=== PATIENT | female | born 1940 | race Caucasian/White ===

== ENCOUNTER 2017-06-26 02:26 | Inpatient (IN) | payer OTHER, MEDICARE ==
[~2017-06-26] VITALS: Ht 170.2 cm; Wt 81.6 kg
[~2017-06-26 02:26] MED LIST: ALEVE220 M1 PO; XANAX0.5 M1 PO
--- NOTE | 2017-06-26 10:03 | Operative Report ---
Operative/Inv Procedure Report Surgery Date: 06/26/17 Name of Procedure: Right total hip arthroplasty Pre-Operative Diagnosis: Primary osteoarthritis right hip Post-Operative Diagnosis: Same Estimated Blood Loss: scant (200 cc) Surgeon/Plastic Process Technician: Yoandy JETER,Merrill LIN Anesthesia: general endotracheal tube IV Fluids: See anesthesia record Implants: Marleen Accolade 2 femoral stem size 527 neck angle, 56 acetabular shell +2.5 neck length 36 mm head Drains: None Specimens: Right femoral head Complications: None Condition: Stable Operative Indication: Patient 76-year-old female severe degenerative changes and osteoarthritis of the right hip. She is failed conservative treatment and was indicated for right total hip arthroplasty. The risks and benefits of the procedure were discussed with the patient in detail in the office. A skilled set hands was necessary provided by physician assistant Tommie Harris weighted with retraction and positioning and retraction and component assembly throughout the case. Operative/Procedure Note Note: Once informed consent was obtained and the correct limb was identified the patient brought to operative room placed on table supine position. Administration of general endotracheal anesthesia patient had a Vanegas catheter placed was placed in a left lateral decubitus position on the pegboard. All bony prominences were well-padded. The right lower extremity is prepped and draped in usual sterile fashion. To begin the procedure standard incision was made for the posterior approach to the hip. Sharp dissection carried down to skin and subcutaneous tissue. The fascia of the gluteus christina was incised and the fibers were bluntly dissected. 2 retractors were placed deep to the gluteus medius and around the femoral neck to identify the piriformis tendon. The piriformis tendon was identified and tagged for later repair. He was released from its insertion. The gluteus minimus muscle belly was identified and a retractor was placed deep to the gluteus medius to expose the superior hip capsule. Using a sharp #10 blade a superior capsulotomy was performed without complication. The capsule was tagged for repair. Hip was then dislocated. The patient Is Removed from the Femoral Neck and a Femoral Neck Cut was made fingerbreadth above the lesser trochanter. Femoral head was passed off as specimen. The femur was then retracted anteriorly and anterior and inferior acetabular retractors were placed to isolate the acetabulum. Lower labrum and osteophytes removed from acetabulum. Lavage removing acetabulum and a curet was used to find the medial wall of the acetabulum. We began reaming with a size 47 reamer. We reamed sequentially up to a size 55 reamer. A 656 trial acetabulum was placed in the cup and found to be an excellent press-fit. A size 56 acetabular cup was opened and press-fit into the acetabulum without complication. It was stable and there was no need for screws. The liner was opened and locked into place on the cup. Ray-Lu was placed in liner to protect it and we turned our attention to the femur. The femur was internally rotated and the femoral neck cut had lateral femoral neck still in place and a box osteotome was used to remove this. Femoral canal was opened with a reamer and then we sequentially broached side starting with a size 0 broach up to a size 5 broach. Size 5 was an excellent fit and left in place. Trial reduction was done. A 36 mm head with a standard neck length was placed. There was a little bit of shucking saline to a +2.5 neck length. The hip was stable with the 2.5 neck length at 90 of flexion with 40 of internal rotation and 40 of adduction. Leg lengths are equal. The hip was dislocated and the trial components removed. The femoral canal was pulse lavaged and a size 5 Accolade 2 press-fit femoral component with 127 neck length was opened and press-fit down the canal with care taken to avoid any intraoperative fractures. Trial reduction was again done with a +2.5 head and found to be stable. A 36 mm +2.5 femoral head was opened and locked into place on the femoral component. The hip was reduced and again taken through range of motion. At this point the wound was pulse lavaged. Drill holes placed in the greater trochanter and the capsule and piriformis were repaired back to the greater trochanter. The fascia was then closed with a running #1 looped Maxon suture. Subcutaneous tissues closed with #1 Vicryl and 2-0 Vicryl interrupted sutures. The skin was closed with som and sterile dressings applied. The patient was awakened taken recovery in stable condition.
--- NOTE | 2017-06-26 10:36 | RADIOLOGY REPORT ---
EXAMINATION: XR HIP, RIGHT CLINICAL INFORMATION: Status post right total hip replacement. COMPARISON: None TECHNIQUE: Single AP view of the right hip FINDINGS: There is a right total hip arthroplasty with the components in usual position. There is no periprosthetic fracture or suspicious area of lucency. Aric are present. Air\E\gas present in the soft tissues compatible postop change IMPRESSION: Right total hip arthroplasty without complication by x-ray.
--- NOTE | 2017-06-26 10:56 | Admission Core Measures ---
Acute Coronary Syndrome (CM) ACS Core Measures Acute Coronary Syndrome Diagnosis No Congestive Heart Failure (NEW) CHF Core Measures Congestive Heart Failure Diagnosis No Cerebrovascular Accident (NEW) CVA Core Measures CVA/TIA Diagnosis No Venous Thromboembolism VTE Core Love (View Protocol) VTE Risk Factors Surgery No Mechanical VTE Prophylaxis d/t N/A MechProphylax Ordered No VTE Pharm Prophylaxis d/t NA PharmProphylax ordered Problem List As ranked by this Provider includes Assessment & Plan 1. Primary osteoarthritis of right hip HOME MEDS Home Med List Alprazolam (Xanax) 0.5 MG TABLET 1 TAB PO DAILY STRESS (Reported) Naproxen Sodium (Aleve) 220 MG CAPSULE 1 TAB PO DAILY PRN PAIN (Reported)
--- NOTE | 2017-06-26 11:02 | Surg Short-stay <48hrs Dis Sum ---
Visit Information Visit Dates Admission Date: 06/26/17 Discharge Date: 06/28/17 Surgical Short Stay DC Summary Admission Diagnosis: Primary osteoarthritis, right hip Final Diagnosis: Same, s/p right total hip arthroplasty Procedure(s): Right total hip arthroplasty Summary/Significant Findings: Patient was admitted to the hospital for an elective total joint replacement. Procedure was tolerated well and patient was transferred to a general surgical floor. Diet was advanced and tolerated. Physical therapy performed evaluation and treatment. At time of hospital discharge, vital signs were stable, neurovascular status was intact, and pain was controlled with the use of oral pain medications. Condition at Discharge: Stable Discharge Disposition: home health services Discharge instructions provided to patient/family: Yes Post discharge follow-up plan: Follow up in [address] Pitt
--- NOTE | 2017-06-26 11:05 | Patient Discharge Instructions ---
Discharge Instructions General Discharge Information You were seen/treated for: Right hip osteoarthritis You had these procedures: Right total hip replacement Watch for these problems: Increasing pain despite the use of pain medication Increasing redness, warmth or swelling Drainage of any type from incision Inability to bear weight on operative leg Persistent nausea and vomiting Fever greater than 101.5 degrees Other wound care: Please keep wound clean and dry. No ointments or lotions of any type on or near incision at any time. No exceptions. Your dressing will be changed by your nurse on the second day after your surgery. Daily dry dressing changes are recommended each day thereafter. Do not soak your wound in a bath at any time until otherwise indicated by your surgeon. You may shower, please dry wound immediately after shower with a clean towel. Diet Continue normal diet: Yes Activity Full Activity/No Limits: No Activity Self Limited: Yes Activity Limited to: Weight bear as tolerated Additional ACTIVITY Info: Use rolling walker as needed Acute Coronary Syndrome Inclusion Criteria At DC or during hospital stay patient has or had the following: ACS DIAGNOSIS No Discharge Core Measures Meds if any: Prescribed or Continued at Discharge Meds if any: NOT Prescribed or Continued at Discharge Congestive Heart Failure Inclusion Criteria At DC or during hospital stay patient has or had the following: CHF DIAGNOSIS No Discharge Core Measures Meds if any: Prescribed or Continued at Discharge Meds if any: NOT Prescribed or Continued at Discharge Cerebrovascular accident Inclusion Criteria At DC or during hospital stay patient has or had the following: CVA/TIA Diagnosis No Discharge Core Measures Meds if any: Prescribed or Continued at Discharge Meds if any: NOT Prescribed or Continued at Discharge Venous thromboembolism Inclusion Criteria VTE Diagnosis No VTE Type NONE VTE Confirmed by (Test) NONE Discharge Core Measures - Per Current guidelines, there needs to be overlap - treatment for the first 5 days of Warfarin therapy. - If discharged on Warfarin prior to 5 days of - overlap therapy, the patient will need to be - assessed for post discharge needs including - *Post discharge parental anticoagulation - *Warfarin and/or parental anticoagulation education - *Follow up date to check INR post discharge At least 5 days overlap therapy as Inpatient No Meds if any: Prescribed or Continued at Discharge Note: Overlap Therapy is Warfarin and Anticoagulant Meds if any: NOT Prescribed or Continued at Discharge
[2017-06-26 11:10] VITALS: BP 126/68
[2017-06-26 13:40] VITALS: BP 110/60
--- NOTE | 2017-06-26 13:43 | Cons- Medical ---
Maren Hernández 06/26/17 1343: General Information and HPI Consulting Request Date of Consult: 06/26/17 Requested By: Yoandy JETER,Merrill Kasper Reason for Consult: Comanagement Source of Information: patient, family, old records Exam Limitations: no limitations History of Present Illness: Mrs. Lea is a 76 yo lady with PMHx. of right hip osteoarthritis, Kyphosis, fatty liver, and anxiety presented to for elective total hip replacement. She is s/p Rt. hip replacemet which was done today. Medical team consulted for co- management. Patient was seen and examined at bedside she denies any chest pain, SOB, palpitation, no other symptoms. She was seen by her PCP about a week ago for complelet annual physical examination/ perioperative evaluation and she was cleared for the procedure today. Her vitals signs is stable and her right hip pain is very well controlled with the current pain regimen. She mentioned that she used Xanax as needed, her anxiety is related to her medical issue, he was diagnosed with parkinsonism and that sometimes made her anxious, otherwise she feels that she is a healthy women. Allergies/Medications Allergies: Coded Allergies: Penicillins (HIVES 06/18/17) Home Med List: Alprazolam (Xanax) 0.5 MG TABLET 1 TAB PO DAILY STRESS (Reported) Naproxen Sodium (Aleve) 220 MG CAPSULE 1 TAB PO DAILY PRN PAIN (Reported) Past History Medical History Blood Transfusion Hx: No EENT: NONE Respiratory: NONE Gastrointestinal: NONE Hepatic: FATTY LIVER Renal: NONE Musculoskeletal: osteoarthritis, spinal stenosis Psychiatric: anxiety Endocrine: NONE Blood Disorders: NONE Cancer(s): NONE AIR POLLUTION ENGINEER/Reproductive: NONE Surgical History Surgical History: appendectomy, hysterectomy Psychosocial History Where Do You Live? Home Smoking Status: Former Smoker Exam & Diagnostic Data Last 24 Hrs of Vital Signs/I&O Vital Signs Date Time Temp Pulse Resp B/P B/P Pulse O2 O2 Flow FiO2 Mean Ox Delivery Rate 06/26 1340 98.6 93 20 110/60 90 06/26 1110 98.2 85 20 126/68 93 Room Air Intake & Output 06/26 1600 06/26 0800 06/26 0000 Intake Total 550 Output Total Balance 550 Intake, IV 150 Intake, Oral 400 Patient 180 lb Weight Weight Reported by Patient Measurement Method Physical Exam General Appearance: well developed/nourished, no apparent distress, alert, awake , comfortable Head: atraumatic, normal appearance Neck: normal inspection, supple Respiratory: normal breath sounds, chest non-tender, no respiratory distress Cardiovascular: regular rate/rhythm, normal peripheral pulses Gastrointestinal: normal bowel sounds, soft, non-tender Extremities: normal inspection, normal capillary refill, normal range of motion, no edema Neurologic/Psych: no motor/sensory deficits, awake, alert, oriented x 3 Last 24 Hrs of Labs/Venkatesh: No labs Assessment/Plan Assessment/Plan Mrs. Lea is a 76 yo lady with PMHx. of right hip osteoarthritis, Kyphosis, fatty liver, and anxiety presented to for elective total hip replacement. She is s/p Rt. hip replacemet which was done today. Medical team consulted for co- management. Assessment: #s/p right hip replacement Plan: * Pain management as per surgical team * repeat CBC/BEP tomorrow * DVT ppx Problem List: 1. Primary osteoarthritis of right hip 2. Status post total hip replacement, right Copies To: Steve Wisdom MD Consult Acknowledgment - Thank you for your consult request. Steve Wisdom MD 06/26/17 8986: Assessment/Plan Consult Acknowledgment - Thank you for your consult request. Attending MD Review Statement Attending Statement Attending MD Statement: examined this patient, discuss w/resident/PA/RN STAFFING, agreed w/resident/PA/RN STAFFING, amended to note Attending Assessment/Plan: The patient is a 76 yo female with h/o anxiety,fatty liver, and OA who presented for elective right hip replacement. At the time of my exam she was in her room sitting in chair and was comfortable. She denied any significant pain, chest pain, palpitations or nausea. Stated her plan was to return home for care as her home. Her has Parkinson's and home is set up well. Physical Exam: VS: T 98.6, P 93, R 20, BP 110/60, PO 93% RA HEENT: eyes- PERRLA, EOMI sweta- moist mucosa w/o lesions Neck: no bruits/JVD Chest: clear Cor: RRR nl S1, S2 w/o murm Abd: BS+, soft, NT Ext: s/p right THR, no edema Neuro: alert & oriented x 3, non-focal exam Impression/Plan: #S/P Right THR- doing well post operatively. Plan: Post op care as per orthopedics. Using Celebrex and Oxycodone for pain. Apixaban for DVT prophylaxis. #Anxiety- patient takes low dose of Xanax chronically. Plan: Agree with continuing usual home dose to avoid withdrawal.
--- NOTE | 2017-06-26 14:47 | PN- Orthopedic ---
Subjective Subjective: pt sitting in chair, minimal pain. Ambulating, worked with PT earlier. Tolerated diet. Curtis still in. Denies CP/SOB Objective Vital Signs and I&Os Vital Signs Date Time Temp Pulse Resp B/P B/P Pulse O2 O2 Flow FiO2 Mean Ox Delivery Rate 06/26 1340 98.6 93 20 110/60 90 06/26 1110 98.2 85 20 126/68 93 Room Air Intake & Output 06/26 1600 06/26 0800 06/26 0000 06/25 1600 06/25 0800 06/25 0000 Intake Total 550 Output Total Balance 550 Intake, IV 150 Intake, Oral 400 Patient 180 lb Weight Weight Reported by Patient Measurement Method Physical Exam: gen- NAD resp-clear cardio-RRR abd- soft, NT ext- right hip soft, dressing clean and dry. 2+ PT pulses bilaterally. Distal sensory and motor function intact Current Medications: Current Medications Sig/Ynug Start time Last Medication Dose Route Stop Time Status Admin Acetaminophen 0 .STK-MED ONE 06/26 710 DC PO Acetaminophen 650 MG ONCE 06/26 0000 DC PO 06/26 2359 Alprazolam 0.5 MG DAILY PRN 06/27 1000 AC PO 07/04 0959 Apixaban 2.5 MG BID 06/27 1000 AC PO Celecoxib 400 MG DAILY 06/27 1000 AC PO Celecoxib 400 MG ONCE 06/26 0000 DC PO 06/26 2359 Dexamethasone 10 MG ONCE 06/27 0000 DC IV 06/27 2359 Dexamethasone 0 .STK-MED ONE 06/26 0711 DC .ROUTE Dexamethasone 10 MG ONCE 06/26 0000 DC IV 06/26 2359 Dextrose/Lactated 1,000 ML Q13H 06/26 1115 AC 06/26 Ringer's IV 1131 Docusate Sodium 100 MG DAILY NEEDED PRN 06/26 1115 AC PO Gabapentin 0 .STK-MED ONE 06/26 0611 DC PO Gabapentin 300 MG ONCE 06/26 0000 DC PO 06/26 2359 Morphine Sulfate 2 MG Q3P PRN 06/26 1115 AC 06/26 IV 1405 Morphine Sulfate 4 MG Q3P PRN 06/26 1115 AC IV Ondansetron HCl 4 MG Q6P PRN 06/26 1115 AC IV Oxycodone HCl 0 .STK-MED ONE 06/26 0711 DC PO Oxycodone HCl 10 MG ONCE 06/26 0000 DC PO 06/26 2359 Oxycodone/ 1 TAB Q4P PRN 06/26 1115 AC Acetaminophen PO Oxycodone/ 2 TAB Q4P PRN 06/26 1115 AC Acetaminophen PO Polyethylene Glycol 17 GM DAILY NEEDED PRN 06/26 1115 AC PO Scopolamine HBr 0 .STK-MED ONE 06/26 0711 DC TOP Scopolamine HBr 1 PAT ONCE 06/26 0000 DC TOP 06/26 2359 Senna/Docusate Sodium 2 TAB AT BEDTIME NEED.. 06/26 1115 AC PO Vancomycin HCl 1,250 MG ONCE ONE 06/26 1900 AC Dextrose/Water 250 ML IV 06/26 195 Vancomycin HCl 1,250 MG ONCE 06/26 0000 DC Sodium Chloride 250 ML IV 06/26 2359 Assessment/Plan Assessment/Plan 76yo F SP R FLOR POD0. stable and ambulating PT- WBAT, posterior hip precautions pain management dvt ppx- eliquis, alps, early ambulation reg diet- will continue IVF overnight and DC in am regular home medications dressing change POD2 DC curtis in AM Core Measures Venous Thromboembolism VTE Risk Factors Surgery No Mechanical VTE Prophylaxis d/t N/A MechProphylax Ordered No VTE Pharm Prophylaxis d/t NA PharmProphylax ordered
[2017-06-26 16:56] VITALS: BP 120/60
[2017-06-26 22:15] VITALS: BP 110/62
[2017-06-27 02:00] VITALS: BP 108/56
--- NOTE | 2017-06-27 07:33 | PN- Orthopedic ---
Subjective Subjective: No overnight events reported. Pain controlled well. Anticipates ambulating today. Denies nausea or vomitting. Vanegas dc'd, dtv. Denies chest pain, shortness of breath and difficulty breahting. Objective Vital Signs and I&Os Vital Signs Date Time Temp Pulse Resp B/P B/P Pulse O2 O2 Flow FiO2 Mean Ox Delivery Rate 06/27 0200 97.9 78 20 108/56 94 Room Air 06/26 2215 98.3 90 20 110/62 93 06/26 1913 18 93 Room Air 06/26 1656 98.2 87 120/60 06/26 1340 98.6 93 20 110/60 90 06/26 1110 98.2 85 20 126/68 93 Room Air Intake & Output 06/27 0806/27 0000 06/26 1600 06/26 0806/26 0000 06/25 1600 Intake Total 480 1400 550 Output Total 700 800 Balance -220 600 550 Intake, IV 600 150 Intake, Oral 480 800 400 Output, Urine 700 800 Patient 180 lb Weight Weight Reported by Patient Measurement Method Physical Exam: General: Alert and oriented x3, no acute distress Cards: RRR, s1s2 Pulm: C TA bialterally ABD: non-tender non-distneded Extremiteis: Moves all extremities, distal sensation intact. Skin warm and well perfused. DP Pulses palpable. Bilateral calves soft and nontender Surgical site: R HIp, dressing dry and intact. No resting internal or external rotation of right leg. Thigh compartment soft. Assessment/Plan Assessment/Plan 76 year old Female, POD 1, s/p R THR -Continue current pain regmein DC iv fluids Eliquis 2.5 bid for dvt ppx OOB, wbat, posterior hip precautions in place Continue diet as tolerated Anticipate dc to home in 2-3 days Will discuss plan of care with DR. Pitt Core Measures Venous Thromboembolism VTE Risk Factors Surgery No Mechanical VTE Prophylaxis d/t N/A MechProphylax Ordered No VTE Pharm Prophylaxis d/t NA PharmProphylax ordered
[2017-06-27 07:40] VITALS: BP 106/52
[2017-06-27 08:08] LABS: ABSOLUTE EOSINOPHIL COUNT 0 /CUMM (0.0-0.7)
--- NOTE | 2017-06-27 08:35 | PN- Medicine Consult ---
[facility] Assessment/PlanMedical Consult Assessment/Plan Assessment: Mrs. Lea is a 76 yo lady with PMHx. of right hip osteoarthritis, Kyphosis, fatty liver, and anxiety presented to for elective total hip replacement. She is s/p Rt. hip replacemet which was done yesterday. Medical team consulted for co-management. Plan: Mrs. Lea is a 76 yo lady with PMHx. of right hip osteoarthritis, Kyphosis, fatty liver, and anxiety presented to for elective total hip replacement. She is s/p Rt. hip replacemet which was done today. Medical team consulted for co- management. Assessment: #s/p right hip replacement Plan: * Pain management as per surgical team * repeat CBC/BEP tomorrow * DVT ppx with Eliquis 2.5 BID Problem List: 1. Status post total hip replacement, right Subjective Subjective: Seen and examined, comfortable No events overnight Vitals stable Review of Systems Constitutional: Reports: no symptoms. EENTM: Reports: no symptoms. Cardiovascular: Reports: no symptoms. Respiratory: Reports: no symptoms. Gastrointestinal: Reports: no symptoms. Genitourinary: Reports: no symptoms. Musculoskeletal: Reports: no symptoms. Skin: Reports: no symptoms. Neurological/Psychological: Reports: no symptoms. Objective Last 24 Hrs of Vital Signs/I&O Vital Signs Date Time Temp Pulse Resp B/P B/P Pulse O2 O2 Flow FiO2 Mean Ox Delivery Rate 06/27 0740 97.5 61 20 106/52 94 Room Air 06/27 0200 97.9 78 20 108/56 94 Room Air 06/26 2215 98.3 90 20 110/62 93 06/26 1913 18 93 Room Air 06/26 1656 98.2 87 120/60 06/26 1340 98.6 93 20 110/60 90 06/26 1110 98.2 85 20 126/68 93 Room Air Intake & Output 06/27 1600 06/27 0800 04 0000 Intake Total 480 1400 Output Total 700 800 Balance -220 600 Intake, IV 600 Intake, Oral 480 800 Output, Urine 700 800 Physical Exam General Appearance: well developed/nourished, no apparent distress, alert, awake , comfortable Head: atraumatic, normal appearance Cardiovascular: regular rate/rhythm, normal peripheral pulses Respiratory: normal breath sounds, chest non-tender, no respiratory distress Abdomen: normal bowel sounds, soft, non-tender Current Medications: Current Medications Sig/Yung Start time Last Medication Dose Route Stop Time Status Admin Acetaminophen 650 MG ONCE 06/26 0000 DC PO 06/26 2359 Alprazolam 0.5 MG DAILY PRN 06/27 1000 AC PO 07/04 0959 Apixaban 2.5 MG BID 06/27 1000 AC 06/27 PO 0842 Celecoxib 400 MG DAILY 06/27 1000 AC 06/27 PO 0842 Celecoxib 400 MG ONCE 06/26 0000 DC PO 06/26 235 Dexamethasone 10 MG ONCE 06/27 0000 DC IV 06/27 235 Dexamethasone 10 MG ONCE 06/26 0000 DC IV 06/26 2359 Dextrose/Lactated 1,000 ML Q13H 06/26 1115 DC 06/27 Ringer's IV 0327 Docusate Sodium 100 MG DAILY NEEDED PRN 06/26 1115 AC PO Gabapentin 300 MG ONCE 06/26 0000 DC PO 06/26 2359 Morphine Sulfate 2 MG Q3P PRN 06/26 1115 AC 06/27 IV 0557 Morphine Sulfate 4 MG Q3P PRN 06/26 1115 AC IV Ondansetron HCl 4 MG Q6P PRN 06/26 1115 AC IV Oxycodone HCl 10 MG ONCE 06/26 0000 DC PO 06/26 2359 Oxycodone/ 1 TAB Q4P PRN 06/26 1115 AC 06/27 Acetaminophen PO 0324 Oxycodone/ 2 TAB Q4P PRN 06/26 1115 AC Acetaminophen PO Polyethylene Glycol 17 GM DAILY NEEDED PRN 06/26 1115 AC PO Scopolamine HBr 1 PAT ONCE 06/26 0000 DC TOP 06/26 2359 Senna/Docusate Sodium 2 TAB AT BEDTIME NEED.. 06/26 1115 AC PO Vancomycin HCl 1,250 MG ONCE ONE 06/26 1900 DC 06/26 Dextrose/Water 250 ML IV 06/26 1959 1849 Vancomycin HCl 1,250 MG ONCE 06/26 0000 DC Sodium Chloride 250 ML IV 06/26 2359 Results Last 24 Hrs Lab/Venkatesh Results: Laboratory Tests 06/27/17 0730: Anion Gap 11, Estimated GFR > 60, BUN/Creatinine Ratio 26.0 H, CBC w Diff NO MAN DIFF REQ, RBC 4.07 L, MCV 89.1, MCH 30.4, MCHC 34.1, RDW 12.9, MPV 10.2, Gran % 80.5 H, Lymphocytes % 9.8 L, Monocytes % 9.4 H, Eosinophils % 0, Basophils % 0.3, Absolute Granulocytes 13.1 H, Absolute Lymphocytes 1.6, Absolute Monocytes 1.5 H, Absolute Eosinophils 0, Absolute Basophils 0 Steve Wisdom MD 06/27/17 2241: Attending MD Review Statement Attending Sign Off Attending Cosign Statement: I have: examined this patient, reviewed avalbl EMR data, discussd w/resident/PA/ NUCLEAR AUXILIARY OPERATOR, discussed mgmt plan w/pt, agreed w/resident/PA/NUCLEAR AUXILIARY OPERATOR, amended to note. Other Findings: Agree with the plan of care as outlined.
[2017-06-27 08:44] LABS: ABSOLUTE BASOPHIL COUNT 0 /CUMM (0.0-0.2); ABSOLUTE GRANULOCYTE CT 13.1 /CUMM (1.4-6.5); ABSOLUTE LYMPH COUNT 1.6 /CUMM (1.2-3.4); ABSOLUTE MONOCYTE COUNT 1.5 /CUMM (0.10-0.60); BASOPHIL % 0.3 % (0.0-2.0); EOSINOPHIL % 0 % (0-5); GRANULOCYTE % 80.5 % (42.2-75.2); HEMATOCRIT 36.3 % (37-47); MEAN CORPUSCULAR HGB 30.4 PG (27.0-31.0); MEAN CORPUSCULAR HGB CONC 34.1 G/DL (33.0-37.0); MEAN CORPUSCULAR VOLUME 89.1 FL (81.0-99.0); MEAN PLATELET VOLUME 10.2 FL (7.4-10.4); PLATELET COUNT 191 /CUMM (130-400); RBC DISTRIBUTION WIDTH 12.9 % (11.5-14.5); RED BLOOD CELL CT 4.07 /CUMM (4.20-5.40); WHITE BLOOD CELL COUNT 16.3 /CUMM (4.8-10.8)
[2017-06-27 14:38] VITALS: BP 90/60
[2017-06-27 21:58] VITALS: BP 110/60
[2017-06-28 07:03] VITALS: BP 100/68
--- NOTE | 2017-06-28 07:19 | PN- Orthopedic ---
Subjective Subjective: POD #2 s/p right THR. No pain. Working well with PT. Voiding spontaneously. Tolerating a regular diet. Asking if she can go home today. passing flatus. No BM yet. Objective Vital Signs and I&Os Vital Signs Date Time Temp Pulse Resp B/P B/P Pulse O2 O2 Flow FiO2 Mean Ox Delivery Rate 06/28 0703 98.8 88 20 100/68 95 Room Air / 2158 98.5 89 18 110/60 93 Room Air / 1438 98.2 65 18 90/60 94 04/05 0740 97.5 61 20 106/52 94 Room Air Intake & Output / 0800 06/28 0000 06/27 1600 06/27 0806/27 0000 06/26 1600 Intake Total 240 610 386 1623 550 Output Total 600 450 700 800 Balance -360 350 -220 600 550 Intake, IV 600 150 Intake, Oral 240 800 480 800 400 Output, Urine 600 450 700 800 Patient 180 lb Weight Weight Reported by Patient Measurement Method Physical Exam: Gen: AAOx3 in NAD Cor: S1+S2+ Lungs: CTA bishnu Abd: soft Ext: palpable DP pulse to right leg. Dorsiflexion/plantar flexion intact. Sensation intact. Right hip dressing removed and replaced. Incision C/D/I with som. No ecchymosis or erythema noted. no drainage noted. Current Medications: Current Medications Sig/Yung Start time Last Medication Dose Route Stop Time Status Admin Alprazolam 0.5 MG DAILY PRN / 1000 AC PO 07/04 0959 Apixaban 2.5 MG BID 06/27 1000 AC 06/27 PO 2042 Celecoxib 400 MG DAILY 06/27 1000 AC 06/27 PO 0842 Docusate Sodium 100 MG DAILY NEEDED PRN 06/26 1115 AC PO Morphine Sulfate 2 MG Q3P PRN 06/26 1115 AC 06/27 IV 0557 Morphine Sulfate 4 MG Q3P PRN 06/26 1115 AC IV Ondansetron HCl 4 MG Q6P PRN 06/26 1115 AC IV Oxycodone/ 1 TAB Q4P PRN 06/26 1115 AC 06/27 Acetaminophen PO 2208 Oxycodone/ 2 TAB Q4P PRN 06/26 1115 AC 06/27 Acetaminophen PO 1224 Patient Medication 1 ED ONE ONE 06/27 1145 DC Teaching ED 06/27 1146 Polyethylene Glycol 17 GM DAILY NEEDED PRN 06/26 1115 AC PO Senna/Docusate Sodium 2 TAB AT BEDTIME NEED.. 06/26 1115 AC PO Results Last 48 Hours of Labs: Laboratory Tests 06/27 0730 Chemistry Sodium (137 - 145 mmol/L) 139 Potassium (3.5 - 5.1 mmol/L) 4.2 Chloride (98 - 107 mmol/L) 105 Carbon Dioxide (22 - 30 mmol/L) 23 Anion Gap (5 - 16) 11 BUN (7 - 17 mg/dL) 13 Creatinine (0.5 - 1.0 mg/dL) 0.5 Estimated GFR (>60 ml/min) > 60 BUN/Creatinine Ratio (7 - 25 %) 26.0 H Hematology CBC w Diff NO MAN DIFF REQ WBC (4.8 - 10.8 /CUMM) 16.3 H RBC (4.20 - 5.40 /CUMM) 4.07 L Hgb (12.0 - 16.0 G/DL) 12.4 Hct (37 - 47 %) 36.3 L MCV (81.0 - 99.0 FL) 89.1 MCH (27.0 - 31.0 PG) 30.4 MCHC (33.0 - 37.0 G/DL) 34.1 RDW (11.5 - 14.5 %) 12.9 Plt Count (130 - 400 /CUMM) 191 MPV (7.4 - 10.4 FL) 10.2 Gran % (42.2 - 75.2 %) 80.5 H Lymphocytes % (20.5 - 51.1 %) 9.8 L Monocytes % (1.7 - 9.3 %) 9.4 H Eosinophils % (0 - 5 %) 0 Basophils % (0.0 - 2.0 %) 0.3 Absolute Granulocytes (1.4 - 6.5 /CUMM) 13.1 H Absolute Lymphocytes (1.2 - 3.4 /CUMM) 1.6 Absolute Monocytes (0.10 - 0.60 /CUMM) 1.5 H Absolute Eosinophils (0.0 - 0.7 /CUMM) 0 Absolute Basophils (0.0 - 0.2 /CUMM) 0 Assessment/Plan Assessment/Plan A: POD #2 s/p R THR; AVSS Plan: D/C home today. VNA to be set up. Core Measures Venous Thromboembolism VTE Risk Factors Surgery No Mechanical VTE Prophylaxis d/t N/A MechProphylax Ordered No VTE Pharm Prophylaxis d/t NA PharmProphylax ordered
[2017-06-28] MEDS ORDERED: CELEBREX200 M1 PO (07:25)
[2017-06-28] MEDS ORDERED: DOCUSATE SODIU100 M3 PO (07:25)
[2017-06-28] MEDS ORDERED: ELIQUIS2.5 M1 PO (07:25)
[2017-06-28] MEDS ORDERED: PERCOCET 5-3251 EACH PO (07:25)
== END 2017-06-28 11:25 | disposition home health service (06) | DRG 470 ==
LOC: SDA 02:26 → ENRESERV 10:09 → ENTRNSPT 10:46 → EDTRNSPT 10:52 → EDTRNSPTSTS 10:52 → 2NA 11:03 → CMPTRNSPT 11:08 → ENPENDDIS 06-28 07:41 → ENTRNSPT 06-28 10:58 → EDTRNSPT 06-28 10:59 → EDTRNSPTSTS 06-28 10:59 → 2NA 06-28 11:25 → CMPTRNSPT 06-28 11:59
PROVIDERS: Physician Assistant Surgical
PROC: 0SR904A Replacement of Right Hip Joint with Ceramic on Polyethylene Synthetic Substitute, Uncemented, Open Approach (ICD-10-PCS; principal; 2017-06-26)
DX: M16.11 Unilateral primary osteoarthritis, right hip (principal); K76.0 Fatty (change of) liver, not elsewhere classified; F41.9 Anxiety disorder, unspecified; I10 Essential (primary) hypertension; M19.91 Primary osteoarthritis, unspecified site; M40.209 Unspecified kyphosis, site unspecified; Z86.718 Personal history of other venous thrombosis and embolism; M48.061 Spinal stenosis, lumbar region without neurogenic claudication; M85.80 Other specified disorders of bone density and structure, unspecified site; Z90.49 Acquired absence of other specified parts of digestive tract; Z90.710 Acquired absence of both cervix and uterus; Z98.1 Arthrodesis status; Z88.0 Allergy status to penicillin
CPT/HCPCS: 2NAP; 36415; 73501; 82436; 87086; 88304; 97110-GO; 97116-GO; 97161-GP; 97530-GO; C9399; J0131; J1100; J3370; J7040; J7060